=== PATIENT | female | born 1975 | race Caucasian/White ===

== ENCOUNTER 2016-06-29 12:43 | Emergency (ER) | payer OTHER ==
[2016-06-29 13:19] LABS: URINE BILIRUBIN NEGATIVE (NEGATIVE); URINE BLOOD NEGATIVE (NEGATIVE); URINE GLUCOSE (UA) NORMAL (NORMAL); URINE KETONE NEGATIVE (NEGATIVE); URINE LEUKOCYTE ESTERASE TRACE (NEGATIVE); URINE NITRATE NEGATIVE (NEGATIVE); URINE PROTEIN NEGATIVE (NEGATIVE); UROBILINOGEN NORMAL mg/dL (<1.0)
[2016-06-29 13:30] LABS: BASO % 0.4 % (0.1-1.2); EOS # 0.2 10_X3_uL (0.0-0.4); EOS % 5.3 % (0.7-5.8); GRAN # 1.2 10_X3_uL (1.6-6.1); GRAN % 27.1 % (34.0-71.1); HEMATOCRIT 37.9 % (34-45); HEMOGLOBIN 12.5 g/dL (11.2-15.7); LYMPH # 2.5 10_X3_uL (1.2-3.7); LYMPH % 55.5 % (19.3-51.7); MEAN CORPUSCULAR HEMOGLOBIN 32.4 pg (27.0-33.0); MEAN CORPUSCULAR VOLUME 98.2 fL (79-95); MEAN PLATELET VOLUME 9.8 fl (7.5-11.5); MONO # 0.5 10_X3_uL (0.2-0.9); MONO % 11.7 % (4.7-12.5); RED BLOOD COUNT 3.86 x10_6/uL (3.9-5.2); RED CELL DISTRIBUTION WIDTH 14.1 % (11.7-14.4); WHITE BLOOD COUNT 4.5 x10_3/uL (4.0-10.0)
[2016-06-29 13:31] LABS: URINE BACTERIA TRACE (NONE SEEN); URINE RBC 0-5 /[HPF] (0-2); URINE SQUAMOUS EPITHELIAL CELL 0-10 /[HPF] (NONE SEEN); URINE WBC 0-5 /[HPF] (0-5)
[2016-06-29 13:37] LABS: ALBUMIN 3.7 gm/dL (3.4-5.0); ALKALINE PHOSPHATASE 70 U/L (50-136); AMYLASE 68 U/L (15.62-74.58); BLOOD UREA NITROGEN 9 mg/dL (7-18); CALCIUM 8.5 mg/dL (8.7-10.7); CARBON DIOXIDE 23 mmol/L (21-32); CREATININE 0.7 mg/dL (0.6-1.3); GLUCOSE,RANDOM 110 mg/dL (70-99); LIPASE 38 U/L (6.75-60.75); SODIUM 134 mmol/L (136-145)
[2016-06-29 13:39] LABS: BILIRUBIN,TOTAL < 0.15 mg/dL (0.0-1.0)
[2016-06-29 14:02] LABS: AST/SGOT 27 U/L (7.04-26.96); POTASSIUM 4.4 mmol/L (3.5-5.1)
[2016-06-29 14:03] LABS: ALT/SGPT 40 U/L (3.5-33.9)
[2016-06-29 14:05] LABS: PLATELET COUNT 217 x10_3/uL (182-369)
== END 2016-06-29 16:10 | disposition home or self-care (01) ==
LOC: ER 12:43
PROVIDERS: Family Medicine
DX: R10.11 Right upper quadrant pain (principal); R11.10 Vomiting, unspecified; R19.7 Diarrhea, unspecified; N83.202 Unspecified ovarian cyst, left side; K21.9 Gastro-esophageal reflux disease without esophagitis; J44.9 Chronic obstructive pulmonary disease, unspecified; Z98.51 Tubal ligation status; F17.210 Nicotine dependence, cigarettes, uncomplicated; Z88.5 Allergy status to narcotic agent; Z88.2 Allergy status to sulfonamides
CPT/HCPCS: 36415; 80053; 81001; 81025; 82150; 83605; 83690; 85025; 96361; 96374; 99070; 99284-25; J1170; J7040; Q9967